=== PATIENT | male | born 1960 | race African-American/Black ===

== ENCOUNTER 2018-01-29 22:50 | Emergency (ER) | payer SELFPAY ==
[~2018-01-29] VITALS: Ht 157.5 cm; Wt 75.0 kg
[~2018-01-29 22:50] MED LIST: BALS1.1T PO; PREVACID; [UNRECOGNIZED DRUG - CODE]
[2018-01-30] MEDS ORDERED: IBUPROFEN 600MG TABLET PO ONE (01:00)
[2018-01-30 03:04] VITALS: BP 119/73
== END 2018-01-30 03:11 | disposition home or self-care (01) ==
LOC: ER 23:01
DX: S93.402A Sprain of unspecified ligament of left ankle, initial encounter (principal); S90.32XA Contusion of left foot, initial encounter; K21.9 Gastro-esophageal reflux disease without esophagitis; W01.0XXA Fall on same level from slipping, tripping and stumbling without subsequent striking against object, initial encounter; Y93.01 Activity, walking, marching and hiking; Y92.89 Other specified places as the place of occurrence of the external cause; Y99.8 Other external cause status
CPT/HCPCS: 73610; 73630; 99284

== ENCOUNTER 2020-06-16 22:23 | Emergency (ER) | payer OTHER ==
[~2020-06-16] VITALS: Ht 177.8 cm; Wt 68.0 kg
[2020-06-16 23:32] VITALS: BP 128/76
[2020-06-17] MEDS ORDERED: TETANUS, DIPHTHERIA, PERTUSSIS VAC/PF 0.5ML (>7YR OLD) IM ONE (00:15)
== END 2020-06-17 01:14 | disposition home or self-care (01) ==
LOC: ER 22:23
DX: S61.217A Laceration without foreign body of left little finger without damage to nail, initial encounter (principal); K21.9 Gastro-esophageal reflux disease without esophagitis; J45.909 Unspecified asthma, uncomplicated; M19.90 Unspecified osteoarthritis, unspecified site; W26.8XXA Contact with other sharp object(s), not elsewhere classified, initial encounter; Y93.89 Activity, other specified; Y92.9 Unspecified place or not applicable; Z88.2 Allergy status to sulfonamides
CPT/HCPCS: 12001; 90471; 90715; 99283